=== PATIENT | female | born 1995 | race Caucasian/White ===

== ENCOUNTER → 2018-05-01 | Outpatient (CLI) | payer BC ==
--- NOTE | 2018-05-01 10:07 | RAD ---
Obstetric pelvic ultrasound May 01, 2018 INDICATION: Vaginal bleeding. COMPARISON: None available. TECHNIQUE: Transabdominal and transvaginal imaging was performed. Sonographic evaluation of the pelvis was performed utilizing grayscale, color Doppler and spectral waveform analysis. FINDINGS: The uterus measures 7.4 x 4.2 x 3.4 cm. Endometrium measures 9 mm. No uterine masses are visualized. Gestational sac, yolk sac and embryo are not visualized. No measurable heart tones. There is no free fluid in the pelvis. The right ovary measures 3.1 x 2.4 x 2.6 cm. Suspected corpus luteum within the right ovary measuring 1.0 x 0.9 cm. Arterial and venous waveform identified at the time of imaging. The left ovary measures 2.8 x 2.1 x 1.7 cm. Follicular changes are present. Arterial and venous waveform are identified at the time of imaging. Visualized portions of the urinary bladder appear normal. IMPRESSION: Intrauterine gestation is not visualized. Findings may represent early versus failure versus ectopic . Recommend short-term follow-up serial beta hCG and pelvic ultrasound for confirmation of viable intrauterine . Electronically signed by: Ela Wu MD (05/01/2018 10:04 AM) [facility]
== END | disposition home or self-care (01) ==
LOC: US 08:49
PROVIDERS: ATTEND Physician Assistant
DX: N93.8 Other specified abnormal uterine and vaginal bleeding (principal)
CPT/HCPCS: 76805; 76817

== ENCOUNTER → 2019-08-06 | Outpatient (CLI) | payer BC ==
--- NOTE | 2019-08-06 15:24 | RAD ---
EXAM: Pelvic sonogram. HISTORY: Vaginal bleeding. TECHNIQUE: Transabdominal and transvaginal sonographic imaging of the pelvis was performed. COMPARISON: None. FINDINGS: The uterus measures 7.4 x 4.4 x 3.3 cm. The endometrial stripe measures 4 mm in thickness. The ovaries are normal in size and demonstrate normal blood flow. There are multiple ovarian follicles with a dominant left ovarian follicle/follicular cyst measuring 1.8 cm. There is no pelvic free fluid. IMPRESSION: 1. Physiologic dominant left ovarian follicle/follicular cyst measuring 1.8 cm. 2. Otherwise, unremarkable pelvic sonogram. Electronically signed by: Adeola Singer MD (08/06/2019 3:21 PM) [facility]
== END | disposition home or self-care (01) ==
LOC: US 14:14
PROVIDERS: ATTEND Family Medicine
DX: N83.02 Follicular cyst of left ovary (principal); N93.9 Abnormal uterine and vaginal bleeding, unspecified
CPT/HCPCS: 76830; 76856